=== PATIENT | female | born 1980 | race Caucasian/White ===

== ENCOUNTER 2017-01-08 15:53 | Emergency (ER) | payer OTHER ==
[~2017-01-08] VITALS: Ht 175.3 cm; Wt 65.8 kg
[~2017-01-08 15:53] MED LIST: ALBUTEROL0.09 MG/A1 INH; ALBUTEROL2.5 MG/3 M INH/SOL; AZITHROMYCIN250 M1 PO; FLOVENT HFA12 G1 INH; MONTELUKAST SOD10 M1 PO; MULTIPLE VITAM1 EAC2 PO; PREDNISONE10 M2 PO; PROVENTIL HFA6.7 GM INH
--- NOTE | 2017-01-08 16:31 | ED DYSPNEA/ASTHMA COMPLAINT ---
History of Present Illness General Chief Complaint: Wheezing/Asthma Stated Complaint: PT IS HAVING PROBLEM BREATHING AT NIGHT SPO 95 Source: patient Exam Limitations: no limitations Vital Signs & Intake/Output Vital Signs & Intake/Output Vital Signs Date Time Temp Pulse Resp B/P B/P Pulse O2 O2 Flow FiO2 Mean Ox Delivery Rate 01/08 2257 97.1 80 17 108/57 97 Room Air 01/08 2116 97.4 78 19 102/54 95 Room Air 01/08 1744 98.8 60 20 116/63 99 Room Air 01/08 1736 97 01/08 1707 94 01/08 1706 96 Room Air 01/08 1607 99.0 76 15 122/82 95 Room Air Room Air Allergies Coded Allergies: aspirin (PER PT WAS TOLD BY MOTHER ALLERGIC TO ASA - UNKNOWN REACTION 01/08/17) Reconcile Medications Albuterol Sulfate (Proventil Hfa) 90 MCG HFA.AER.AD 2 PUF INH Q4 sob Albuterol Sulfate 2.5 MG/3 ML (0.083 %) VIAL.NEB 1 Vial INH/MENG Q4P PRN son/ asthma Budesonide (Pulmicort Flexhaler) 180 MCG AER.POW.BA 2 PUF INH BID ASTHMA ( Reported) Buprenorphine HCl/Naloxone HCl (Suboxone 4 MG-1 MG Sl Film) 4 MG-1 MG FILM 1 STR SL BID MENTAL HEALTH (Reported) Escitalopram Oxalate (Lexapro) 10 MG TABLET 1 TAB PO DAILY MENTAL HEALTH ( Reported) Methylprednisolone. (Medrol) 4 MG TAB.DS.PK 1 DP PO AD INFLAMMATION 6 on day 1 then reduce by one tablet daily until gone Montelukast Sodium 10 MG TABLET 10 MG PO AT BEDTIME asthma Multivitamin (Multiple Vitamins) 1 EACH TABLET 1 TAB PO DAILY SUPPLEMENT ( Reported) Norethindrone-Ethinyl Estrad (Alyacen 1-35-28 Tablet) 1 MG-35 MCG TABLET 1 TAB PO DAILY CONTROL (Reported) Triage Note: PT TO ED FOR C/C OF DIFF BREATHING AT NIGHT. TOOK NEBULIZER WITHOUT RELIEF. PT HAS PRODUCTIVE COUGH WITH CLEAR PHLEGM. +COLD SWEATS. HAD HISTORY OF BILATERAL PNA IN JUNE 2016 AND REPORTS IT FEELS SIMILAR. Triage Nurses Notes Reviewed? yes Onset: Gradual Duration: day(s): (3) Timing: recent history Severity: moderate, severe Activities at Onset: none Associated Symptoms: cough, wheezing, DYSPNEA : No Patient currently breastfeeds: No HPI: His is a 36 old female with history of asthma, former smoker, who presents to the ER for chief complaint of asthma exacerbation for the past 3 days. She states at nighttime she is waking up Q 1-1/2 hours to use albuterol treatments. She states in the last 2 days she's had episodes where she gets so short of breath that she becomes all of her diaphoretic and then rescues her breathing with albuterol treatment. Patient denies any fever or chills. She does have some chest tightness. She has a history of pneumonia. No previous intubations. She has not been on any steroids recently. Denies any sick contacts or travel. Past History Travel History Traveled to [place] past 21 day No Medical History Any Pertinent Medical History? 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 No Review of Systems Review of Systems Constitutional: Denies: chills, fever. EENTM: Denies: throat pain. Respiratory: Reports: cough, short of breath. Denies: sputum production. Cardiovascular: Reports: chest pain. GI: Denies: abdominal pain, nausea, vomiting. Genitourinary: Denies: discharge, dysuria. Musculoskeletal: Reports: no symptoms. Skin: Reports: no symptoms. Neurological/Psychological: Reports: no symptoms. Hematologic/Endocrine: Denies: bruising, bleeding, polyuria, polydipsia. Immunologic/Allergic: Denies: splenectomy. All Other Systems: Reviewed and Negative Physical Exam Physical Exam General Appearance: alert, awake, anxious, mild distress, moderate distress, thin Head: atraumatic, normal appearance, active bleeding Eyes: Bilateral: normal appearance, PERRL, EOMI. Ears, Nose, Throat: normal pharynx, normal ENT inspection, hearing grossly normal Neck: normal inspection, supple, full range of motion Respiratory: decreased breath sounds, accessory muscle use, wheezing, respiratory distress Cardiovascular: regular rate/rhythm Peripheral Pulses: 2+ radial (R), 2+ radial (L) Gastrointestinal: normal bowel sounds, soft, non-tender Extremities: normal inspection, normal range of motion, no edema Neurologic/Psych: no motor/sensory deficits, awake, alert, oriented x 3 Skin: intact, normal color, warm/dry Core Measures ACS in differential dx? No Severe Sepsis Present: No Septic Shock Present: No Progress Differential Diagnosis: asthma, bronchitis, CHF, pulmonary embolism, pneumothorax Plan of Care: Orders Procedure Date/time Status RT ED ORDERS 01/08 1656 Active URINE 01/08 1610 Complete Current Medications Sig/Lorna Start time Last Medication Dose Stop Time Status Admin Magnesium Sulfate 1 GM Q2H 01/08 2015 AC 01/08 (Mag Sulfate in D5) 01/09 0014 2209 Dextrose/Water 100 ML (D5W) Laboratory Tests 01/08/17 1618: Urine Test NEGATIVE 6:59 PM Patient improved, diminished wheezing. Chest x-rays negative. Patient still on continuous neb at this time. 01/08/2017 11:30:47 PM Patient is dramatically improved. Lungs are clear to auscultation. Oxygen saturation is 95-96%. She is comfortable, reading on the stretcher. Heart rate is in the 70s. Patient does feel tired at this time. Patient will stay home tomorrow use orbital treatments and take steroids. She'll follow up with her doctor in the office. Patient informed to return immediately to the hospital should her breathing get worse. (JOSH TSAI,LESTER) Diagnostic Imaging: Viewed by Me: Radiology Read. Discussed w/RAD: Radiology Read. CXR Impression: PATIENT: ANDREA KEARNEY PRESENT AGE: 36 PATIENT ACCOUNT NO: [id number] : 82 LOCATION: [facility] ORDERING PHYSICIAN: LESTER MORENO MD SERVICE DATE: 01/08/17-1609 EXAM TYPE: RAD - XRY -CHEST XRAY, PA AND LATERAL EXAMINATION: XR CHEST CLINICAL INFORMATION: Cough. Fever. COMPARISON: Chest x-ray 07/23/2016 TECHNIQUE: 2 views of the chest were obtained. FINDINGS: No significant abnormality is noted involving the heart, lungs, mediastinum, bony thorax or soft tissues. IMPRESSION: Unremarkable examination. DICTATED BY: MEGAN HUBBARD MD DATE/TIME DICTATED:01/08/171804 SUBWAREHOUSE SUPERVISOR:CHRIS DATE/TIME TRANSCRIBED:01/08/171804 CONFIDENTIAL, DO NOT COPY WITHOUT APPROPRIATE AUTHORIZATION. <Electronically signed in Other Vendor System> SIGNED BY: MEGAN HUBBARD MD 01/08/171808 Initial ED EKG: none Rhythm Strip: normal sinus rhythm Departure Departure Time of Disposition: 2328 Disposition: HOME OR SELF CARE Condition: Stable Clinical Impression Primary Impression: Status asthmaticus Referrals: PATIENT HAS NO PRIMARY CARE DR (PCP/Family) Additional Instructions: Please take the prednisone as directed. 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 Stay home tomorrow use her steroids and albuterol treatments. If you're worse please return immediately to the hospital otherwise follow-up with your primary care doctor in the office. Departure Forms: Customer Survey General Discharge Information Prescriptions: Current Visit Scripts Methylprednisolone. (Medrol) 1 DP PO AD #1 DP 6 on day 1 then reduce by one tablet daily until gone Critical Care Note Critical Care Note Critical Care Time: 75-104 min
[2017-01-08] MEDS ORDERED: SUBOXONE 4 MG-1 EACH SL (17:13)
[2017-01-08] MEDS ORDERED: PULMICORT FLE180 MC1 INH (17:14)
[2017-01-08] MEDS ORDERED: LEXAPRO10 M1 PO (17:14)
[2017-01-08] MEDS ORDERED: ALYACEN 1-35-21 EACH PO (17:15)
--- NOTE | 2017-01-08 18:09 | RADIOLOGY REPORT ---
EXAMINATION: XR CHEST CLINICAL INFORMATION: Cough. Fever. COMPARISON: Chest x-ray 07/23/2016 TECHNIQUE: 2 views of the chest were obtained. FINDINGS: No significant abnormality is noted involving the heart, lungs, mediastinum, bony thorax or soft tissues. IMPRESSION: Unremarkable examination.
[2017-01-08 22:57] VITALS: BP 108/57
[2017-01-08] MEDS ORDERED: MEDROL4 M2 PO (23:30)
== END 2017-01-08 23:32 ==
LOC: ERH 15:53
DX: J45.902 Unspecified asthma with status asthmaticus (principal); Z87.891 Personal history of nicotine dependence
CPT/HCPCS: 1263; 81025; 96365; 96366; 99291